=== PATIENT | female | born 1985 | race African-American/Black ===

== ENCOUNTER 2016-07-15 10:34 | Emergency (ER) | payer OTHER ==
[2016-07-15 10:43] VITALS: BMI 34.7
[2016-07-15] MEDS ORDERED: KETOROLAC TROMETHAMINE 30 MG/1 ML VIAL IVPUSH ONE (13:56)
[2016-07-15] MEDS ORDERED: SODIUM CHLORIDE 1,000 ML IV STA (13:56)
[2016-07-15] MEDS ORDERED: FAMOTIDINE 20 MG/50 ML IVPB 20 MG in PREMIX 50 IVPB ONE (13:56)
--- NOTE | 2016-07-15 14:24 | PDOC ---
History of Present Illness - General Chief Complaint: Pain Stated Complaint: ABD CRAMPS Time Seen by Provider: 07/15/16 13:39 History Source: Patient Exam Limitations: No Limitations - History of Present Illness Travel History: No Initial Comments: 07/15/16 14:18 30-year-old female presents the ED with complaints of upper periumbilical epigastric cramping and burning sensation that began this morning after eating breakfast which she states was just post then eggs and coffee. Patient states shortly following the discomfort she vomited twice which contained food products but now states the nausea has resolved. Patient states no history of acid reflux or cyclic vomiting since she does state smokes marijuana 3 times a week. Patient denies gallstones, pancreatitis, urinary complaints, bowel complaints or abdominal distention. Patient states receives a double shots of her menses is irregular. Timing/Duration: reports: constant Quality: reports: mild Abdominal Pain Onset Location: reports: periumbilical Pain Radiation: reports: epigastric Activities at Onset: reports: eating Aggravating Factors: improves with: None Alleviating Factors: improves with: None Past History - Past Medical History Allergies/Adverse Reactions: Allergies Allergy/AdvReac Type Severity Reaction Status Date / Time No Known Allergies Allergy Verified 07/15/16 16:25 Home Medications: Ambulatory Orders Ferrous Sulfate [Feosol] 325 mg PO BID ud 07/06/15 Famotidine [Pepcid] 20 mg PO DAILY #30 tablet 07/15/16 Ondansetron HCl [Zofran] 4 mg PO TID PRN #12 tablet 07/15/16 Asthma: No Cancer: No Cardiac Disorders: No Diabetes: No HTN: No Seizures: No Thyroid Disease: No Other medical history: none - Psycho/Social/Smoking Cessation Hx Anxiety: No Suicidal Ideation: No Smoking Status: Yes Smoking History: Never smoked Have you smoked in the past 12 months: No Number of Cigarettes Smoked Daily: 1 Information on smoking cessation initiated: No Hx Alcohol Use: No Drug/Substance Use Hx: No Substance Use Type: None Hx Substance Use Treatment: No Patient Lives Alone: No Lives with/in: children Review of Systems - Review of Systems Able to Perform ROS?: Yes Constitutional: No: Symptoms Reported HEENTM: No: Symptoms Reported Respiratory: No: Symptoms reported Cardiac (ROS): No: Symptoms Reported ABD/GI: Yes: Nausea, Vomiting, Indigestion, Abdominal cramping : No: Symptoms Reported Musculoskeletal: No: Symptoms Reported Integumentary: No: Symptoms Reported Neurological: No: Symptoms reported Endocrine: No: Symptoms Reported Hematologic/Lymphatic: No: Symptoms Reported *Physical Exam - Vital Signs Last Vital Signs Temp Pulse Resp BP Pulse Ox 97.4 F L 56 L 18 153/76 100 07/15/16 10:40 07/15/16 10:40 07/15/16 10:40 07/15/16 10:40 07/15/16 10:40 - Physical Exam General Appearance: Yes: Nourished, Appropriately Dressed. No: Apparent Distress HEENT: positive: EOMI. negative: Pale Conjunctivae Neck: positive: Supple Respiratory/Chest: positive: Lungs Clear, Normal Breath Sounds. negative: Respiratory Distress Cardiovascular: positive: Regular Rhythm, Regular Rate. negative: Murmur Gastrointestinal/Abdominal: positive: Normal Bowel Sounds, Soft, Tenderness ( upper periumbilical, lower epigastric). negative: Distended, Guarding, Rebound , Hernia, Mass Extremity: positive: Normal Capillary Refill. negative: Pedal Edema Integumentary: positive: Normal Color, Warm, Moist Neurologic: positive: Motor Strength 5/5 (ambulatory) ED Treatment Course - LABORATORY CBC & Chemistry Diagram: 07/15/16 14:50 07/15/16 14:50 Medical Decision Making - Medical Decision Making 07/15/16 14:05 Patient with epigastric lower periumbilical pain followed by 2 episodes of vomiting. Patient currently complaining of discomfort and denies history of reflux or cyclic vomiting due to marijuana use. Patient was ordered for CBC, comp, lipase, urinalysis urine , IV fluids, Zofran and Pepcid. 07/15/16 15:56 Laboratory Tests 07/15/16 07/15/16 07/15/16 14:50 14:50 14:50 WBC 7.1 Hgb 13.1 D Hct 38.6 Neutrophils % Y Sodium 140 Potassium 3.9 Chloride 107 Carbon Dioxide 22 Anion Gap 11 BUN 11 D Creatinine 0.7 Creat Clearance w eGFR > 60 Random Glucose 130 H D Calcium 9.2 AST 20 D ALT 32 D Lipase 64 L Urine Ketones 1+ H Urine Nitrite Negative Ur Leukocyte Esterase Negative Urine HCG, Qual Negative Patient states feeling much better with no complaints presently. Patient will be discharged home with Zofran Pepcid and recommendations to drink plenty of fluids. Patient also recommended to avoid marijuana use *DC/Admit/Observation/Transfer Diagnosis at time of Disposition: GERD (gastroesophageal reflux disease) Qualifiers: Esophagitis presence: without esophagitis Qualified Code(s): K21.9 - Gastro- esophageal reflux disease without esophagitis - Discharge Dispostion Disposition: HOME Condition at time of disposition: Improved - Prescriptions Prescriptions: Famotidine [Pepcid] 20 mg PO DAILY #30 tablet Ondansetron HCl [Zofran] 4 mg PO TID PRN #12 tablet PRN Reason: Nausea And/Or Vomiting - Patient Instructions Printed Discharge Instructions: DI for Gastroesophageal Reflux Disease (GERD) Additional Instructions: Please take Pepcid daily as recommended for the next 30 days and Zofran as needed for nausea. Please also avoid marijuana usage. - Post Discharge Activity Work/School Note: Back to Work
[2016-07-15] MEDS ORDERED: KETOROLAC TROMETHAMINE 30 MG/1 ML VIAL ONE (14:36)
[2016-07-15] MEDS ORDERED: FAMOTIDINE 20 MG/50 ML IVPB 50 ML IVPB ONE (14:36)
[2016-07-15 14:57] LABS: MCH 29.9 pg (25.7-33.7); MCHC 33.9 g/dl (32.0-36.0); MEAN CELL VOLUME 88.3 fl (80-96); MEAN PLT VOLUME 8.1 fl (7.5-11.1); PLATELET COUNT 219 K/MM3 (134-434); RDW 12.5 % (11.6-15.6); WHITE BLOOD COUNT 7.1 K/mm3 (4.0-10.0)
[2016-07-15 15:00] LABS: URINE APPEARANCE CLEAR; URINE BILIRUBIN NEGATIVE (NEGATIVE); URINE BLOOD NEGATIVE (NEGATIVE); URINE COLOR YELLOW; URINE GLUCOSE (UA) NEGATIVE (NEGATIVE); URINE KETONE 1+ (NEGATIVE); URINE LEUK ESTERASE NEGATIVE (NEGATIVE); URINE NITRITE NEGATIVE (NEGATIVE); URINE PROTEIN NEGATIVE (NEGATIVE); URINE UROBILINOGEN NEGATIVE E.U./dl (0.2-1.0)
[2016-07-15 15:20] LABS: ALBUMIN 4.5 g/dl (3.4-5.0); ANION GAP 11 (8-16); BILIRUBIN,TOTAL 0.4 mg/dL (0.2-1.0); CALCIUM 9.2 mg/dL (8.5-10.1); CO2 22 mmol/L (21-32); CREATININE 0.7 mg/dL (0.55-1.02); GLUCOSE,RANDOM 130 mg/dL (74-106); SGOT/AST 20 U/L (15-37); SGPT/ALT 32 U/L (12-78)
[2016-07-15 15:21] LABS: ALK PHOS 61 U/L (45-117); TOT PROT 8.2 g/dl (6.4-8.2)
[2016-07-15 16:22] LABS: PLATELET ESTIMATE ADEQUATE (NORMAL)
[2016-07-15 16:23] LABS: POLYCHROMASIA 1+
[2016-07-15 16:41] VITALS: BP 132/79; PULSE 69; TEMP 98.6
== END 2016-07-15 16:40 | disposition home or self-care (01) ==
LOC: JER 10:34
PROC: 3E033GC Introduction of Other Therapeutic Substance into Peripheral Vein, Percutaneous Approach (ICD-10-PCS; principal; 2016-07-15)
PROC: 3E0333Z Introduction of Anti-inflammatory into Peripheral Vein, Percutaneous Approach (ICD-10-PCS; 2016-07-15)
DX: K21.9 Gastro-esophageal reflux disease without esophagitis (principal)
CPT/HCPCS: 36415; 80053; 81003; 83690; 84703; 85025; 99284-25

== ENCOUNTER 2016-08-16 22:33 | Emergency (ER) | payer OTHER ==
[2016-08-16 22:38] VITALS: BP 150/67; PULSE 69; TEMP 97; BMI 34.7
[2016-08-16] MEDS ORDERED: ACETAMINOPHEN 325 MG TABLET (FP) PO ONE (23:33)
--- NOTE | 2016-08-16 23:36 | PDOC ---
History of Present Illness - General History Source: Patient Exam Limitations: No Limitations - History of Present Illness Initial Comments: 08/16/16 23:55 The patient is a 31-year-old female with no significant past medical history, and presents to the emergency department with injuries and pain in the extremities s/p fall at 8pm tonight. The patient states she fell on her left side today as she was walking on the sidewalk. She reports pain in the left pinky region of her left hand, and she is unable to move the pinky due to pain. She reports pain in the medial aspect of the left foot, located primarily in the first and second toe of the foot. SHe reports difficulty walking due to the pain. She denies LOC or head trauma. The patient denies chest pain, back pain, shortness of breath, headache and dizziness. The patient denies fever, chills, nausea, vomit, diarrhea and constipation. The patient denies dysuria, frequency, urgency and hematuria. Allergies: NKDA Past Surgical History: None reported <Lyndsey Bush - Last Filed: 08/16/16 23:55> <Yamini Baca - Last Filed: 08/17/16 03:32> - General Chief Complaint: Injury Stated Complaint: FELL Time Seen by Provider: 08/16/16 23:16 Past History <Lyndsey Bush - Last Filed: 08/16/16 23:55> - Past Medical History Asthma: No Cancer: No Cardiac Disorders: No Diabetes: No HTN: No Seizures: No Thyroid Disease: No - Psycho/Social/Smoking Cessation Hx Anxiety: No Suicidal Ideation: No Smoking Status: Yes Smoking History: Never smoked Have you smoked in the past 12 months: No Number of Cigarettes Smoked Daily: 1 Hx Alcohol Use: No Drug/Substance Use Hx: No Substance Use Type: None Hx Substance Use Treatment: No <Yamini Baca - Last Filed: 08/17/16 03:32> - Past Medical History Allergies/Adverse Reactions: Allergies Allergy/AdvReac Type Severity Reaction Status Date / Time No Known Allergies Allergy Verified 08/16/16 22:38 Home Medications: Ambulatory Orders Ferrous Sulfate [Feosol] 325 mg PO BID ud 07/06/15 Famotidine [Pepcid] 20 mg PO DAILY #30 tablet 07/15/16 Ondansetron HCl [Zofran] 4 mg PO TID PRN #12 tablet 07/15/16 Review of Systems - Review of Systems Able to Perform ROS?: Yes Comments:: 08/16/16 23:56 CONSTITUTIONAL: Absent: fever, no chills, no fatigue EYES: Absent: visual changes ENT: Absent: ear pain, no sore throat CARDIOVASCULAR: Absent: chest pain, no palpitations RESPIRATORY: Absent: cough, no SOB GI: Absent: abdominal pain, no nausea, no vomiting, no constipation, no diarrhea GENITOURINARY: Absent: dysuria, no frequency, no hematuria MUSCULOSKELETAL: Present: (+) left pinky pain, (+) left foot and toe pain Absent: back pain SKIN: Absent: rash <Lyndsey Bush - Last Filed: 08/16/16 23:55> *Physical Exam - Vital Signs Last Vital Signs Temp Pulse Resp BP Pulse Ox 97 F L 69 18 150/67 97 08/16/16 22:34 08/16/16 22:34 08/16/16 22:34 08/16/16 22:34 08/16/16 22:34 - Physical Exam Comments: 08/16/16 23:56 Focused Exam: GENERAL: Well developed, well nourished. Awake and alert. No acute distress. HEENT: Normocephalic, atraumatic. PERRLA, EOMI. No conjunctival pallor. Sclera are non- icteric. Moist mucous membranes. Oropharynx is clear. NECK: Supple. Full ROM. No JVD. Carotid pulses 2+ and symmetric, without bruits. No thyromegaly. No lymphadenopathy. MUSCULOSKELETAL No bony deformities. No CVA tenderness. EXTREMITIES: (+) Tenderness to touch of the left pinky. (+) Tenderness to touch of the medial aspect of the left foot. No cyanosis. No clubbing. No edema. No calf tenderness. SKIN: Warm and dry. Normal capillary refill. No rashes. No jaundice. <Lyndsey Bush - Last Filed: 08/16/16 23:55> - Vital Signs Last Vital Signs Temp Pulse Resp BP Pulse Ox 97 F L 69 18 150/67 97 08/16/16 22:34 08/16/16 22:34 08/16/16 22:34 08/16/16 22:34 08/16/16 22:34 <Baca,Yamini - Last Filed: 08/17/16 03:32> ED Treatment Course - Medications Given in the ED: ED Medications Discontinued Medications Generic Name Dose Route Start Last Admin Trade Name Bianka PRN Reason Stop Dose Admin Acetaminophen 650 mg 08/16/16 23:33 08/16/16 23:47 Tylenol - PO 08/16/16 23:34 650 mg ONCE ONE Administration <Lyndsey Bush - Last Filed: 08/16/16 23:55> - RADIOLOGY Radiology Studies Ordered: Category Date Time Status FOOT-LEFT [RAD] Stat Radiology 08/16/16 23:28 Ordered <Yamini Baca - Last Filed: 08/17/16 03:32> Medical Decision Making - Medical Decision Making 08/17/16 01:28 Patient Name: Roseanne Tsai THIS IS A PRELIMINARYREPORT FROM [facility] [employer] EXAM: X-ray left foot IMAGES: 3 INDICATION: Pain DATE OF SERVICE: 2016 00:55:32.0 COMPARISON: none FINDINGS: The bones, joints and soft tissues are normal. IMPRESSION: Normal left foot. THIS DOCUMENT HAS BEEN ELECTRONICALLY SIGNED 08/17/16 03:30 Pt comes after she tripped and fell on busted pavement. She complains of left pinky pain and left big toe pain. XRAYS are normal. Pain meds and josefina wrap. Rest. <Yamini Baca - Last Filed: 08/17/16 03:32> *DC/Admit/Observation/Transfer - Attestations Scribe Attestion: 08/16/16 23:56 Documentation prepared by Lyndsey Bush, acting as medical oncologist for Yamini Baca MD. <Lyndsey Bush - Last Filed: 08/16/16 23:55> - Discharge Dispostion Admit: No <Yamini Baca - Last Filed: 08/17/16 03:32> Diagnosis at time of Disposition: Contusion of left foot, Contusion of left little finger - Discharge Dispostion Disposition: HOME Condition at time of disposition: Stable - Patient Instructions Printed Discharge Instructions: DI for Contusion
[2016-08-16] MEDS ORDERED: ACETAMINOPHEN 325 MG TABLET (FP) ONE ×2 (23:42→23:47)
== END 2016-08-17 01:33 | disposition home or self-care (01) ==
LOC: JER 22:33
DX: S90.32XA Contusion of left foot, initial encounter (principal); S60.052A Contusion of left little finger without damage to nail, initial encounter; W18.39XA Other fall on same level, initial encounter; Y93.01 Activity, walking, marching and hiking; Y92.480 Sidewalk as the place of occurrence of the external cause; Y99.8 Other external cause status
CPT/HCPCS: 73130-TC-LT; 73630-TC-LT; 84703; 99281-25

== ENCOUNTER 2023-12-02 13:44 | Emergency (ER) | payer SELFPAY ==
[2023-12-02 14:02] VITALS: BP 115/64; PULSE 75; RESP 18; TEMP 98.8; BMI 38.2
[2023-12-02 15:40] LABS: PH,URINE 5.5 (5.0-8.0); URINE APPEARANCE CLEAR; URINE BILIRUBIN NEGATIVE (NEGATIVE); URINE COLOR YELLOW; URINE GLUCOSE (UA) NEGATIVE (NEGATIVE); URINE KETONE TRACE (NEGATIVE); URINE LEUK ESTERASE NEGATIVE (NEGATIVE); URINE NITRITE NEGATIVE (NEGATIVE); URINE PROTEIN NEGATIVE (NEGATIVE)
[2023-12-02 16:00] LABS: HCG,QUALITATIVE URINE Negative
== END 2023-12-02 16:01 | disposition home or self-care (01) ==
LOC: JERFT 13:44
DX: M54.9 Dorsalgia, unspecified (principal); G89.29 Other chronic pain
CPT/HCPCS: 72100-TC-FY; 81003; 84703; 87086; 87186; 99284-25

== ENCOUNTER 2023-12-23 13:17 | Emergency (ER) | payer OTHER ==
[2023-12-23 13:44] VITALS: BP 135/72; PULSE 63; RESP 18; TEMP 98.5; BMI 42.0
[2023-12-23] MEDS ORDERED: LIDOCAINE 4% PATCH TP ONE (14:24)
[2023-12-23] MEDS ORDERED: KETOROLAC TROMETHAMINE 30 MG/1 ML VIAL ONE (14:24)
[2023-12-23] MEDS: LIDOCAINE 4% PATCH TP ONE (14:30)
[2023-12-23] MEDS: KETOROLAC TROMETHAMINE 30 MG/1 ML VIAL IM ONE (14:30)
[2023-12-23] MEDS: LIDOCAINE 5% TOPICAL PATCH TP ONE (14:34)
[2023-12-23] MEDS ORDERED: LIDOCAINE PATCH REMOVAL MC SCH ×2 (22:00)
== END 2023-12-23 14:30 | disposition home or self-care (01) ==
LOC: JER 13:17
PROC: 3E0133Z Introduction of Anti-inflammatory into Subcutaneous Tissue, Percutaneous Approach (ICD-10-PCS; principal; 2023-12-23)
DX: M54.50 Low back pain, unspecified (principal); W06.XXXA Fall from bed, initial encounter; Y92.019 Unspecified place in single-family (private) house as the place of occurrence of the external cause
CPT/HCPCS: 99284-25